=== PATIENT | female | born 1995 | race American Indian/Alaskan Native ===

== ENCOUNTER 2019-01-20 11:54 | Emergency (ER) | payer SELFPAY ==
--- NOTE | 2019-01-20 12:04 | Emergency Department Report ---
Blank Doc - Documentation Documentation: This is a 23-year-old female that presents with left middle finger pain s/p door hit finger. This initial assessment/diagnostic orders/clinical plan/treatment(s) is/are subject to change based on patient's health status, clinical progression and re- assessment by fellow clinical providers in the ED. Further treatment and workup at subsequent clinical providers discretion. Patient/guardians urged not to elope from the ED as their condition may be serious if not clinically assessed and managed. Initial orders include: 1- Patient sent to [facility] for further evaluation and treatment 2- xray
--- NOTE | 2019-01-20 12:55 | XRay Report ---
Left third finger: Pain. Routine views of the middle digit with AP view of the hand demonstrates a mild lateral deviation of the distal phalanx of the third digit compared to the adjacent digits. There is no fracture and no separation of the joint space. The bones are well-mineralized. No swelling. Impression: Distal phalanx angulation. Trauma?
--- NOTE | 2019-01-20 16:26 | Emergency Department Report ---
HPI - General Chief Complaint: Extremity Injury, Upper Time Seen by Provider: 01/20/19 12:02 - HPI HPI: This is a 23-year-old female who presents to ED complaining of left third digit pain status post injury yesterday. Patient states that she was doing the dishes and had accidentally had the top fall on her finger. She states she is able to wiggle the finger and year but to use the finger but is experiencing some pain ED Past Medical Hx - Past Medical History Hx Hypertension: Yes - Surgical History Past Surgical History?: No - Social History Smoking Status: Never Smoker Substance Use Type: None - Medications Home Medications: Home Medications Medication Instructions Recorded Confirmed Last Taken Type Ibuprofen 600 mg PO TID 4 Days #20 tablet 01/20/19 Unknown Rx ED Review of Systems ROS: Stated complaint: LFT HAND SWELLING/PAIN Other details as noted in HPI Comment: All other systems reviewed and negative Physical Exam - Physical Exam Vital Signs: Vital Signs 01/20/19 12:02 Temperature 98 F Pulse Rate 106 H Respiratory 18 Rate Blood Pressure 163/115 O2 Sat by Pulse 100 Oximetry Physical Exam: GENERAL: Alert and oriented x3, no apparent distress, Normal Gait, atraumatic. HEAD: Head is normocephalic and a-traumatic. EXTREMITIES/MUSCULOSKELETAL: No cyanosis, clubbing, rash, lesions or edema. Full ROM bilaterally. UE/LE Pulses 2+ bilaterally. LE and UE 5+ strength bilaterally. Thyroid digit tender to palpation. Slightly contused, no deformity seen NEUROLOGIC: The patient is cooperative with no focal neurologic deficits. SKIN: Warm and dry, No lesions, No ulceration or induration present. ED Course Vital Signs 01/20/19 12:02 Temperature 98 F Pulse Rate 106 H Respiratory 18 Rate Blood Pressure 163/115 O2 Sat by Pulse 100 Oximetry ED Medical Decision Making - Medical Decision Making 23-year-old female presents with finger contusion. X-ray shows no acute dislocation or fractures. Signed discussed the patient follow up with primary care physician. Finger put in splint Critical care attestation.: If time is entered above; I have spent that time in minutes in the direct care of this critically ill patient, excluding procedure time. ED Disposition Clinical Impression: Finger contusion Disposition: - TO HOME OR SELFCARE Is pt being admited?: No Does the pt Need Aspirin: No Condition: Stable Instructions: Contusion in Adults (ED), Finger Sprain (ED), Arthralgia (ED) Additional Instructions: Make sure to follow up with the primary care physician as discussed. Take all your medications as you've been prescribed. If you have any worsening symptoms or develop new symptoms please return to ED immediately. Prescriptions: Ibuprofen 600 mg PO TID 4 Days #20 tablet Referrals: MICHEL BARDALES MD [Primary Care Provider] - 3-5 Days Forms: Accompanied Note, Work/School Release Form(ED) Time of Disposition: 16:28
[2019-01-20] MEDS ORDERED: IBUPROFEN PO ONE (16:52)
[2019-01-20] MEDS ORDERED: IBUPROFEN ONE (16:53)
[2019-01-20 16:56] VITALS: BP 148/92
== END 2019-01-20 16:55 | disposition home or self-care (01) ==
LOC: ED 11:54
DX: S60.022A Contusion of left index finger without damage to nail, initial encounter (principal); W20.8XXA Other cause of strike by thrown, projected or falling object, initial encounter; Y93.89 Activity, other specified; Y92.89 Other specified places as the place of occurrence of the external cause; Y99.8 Other external cause status